=== PATIENT | male | born 1960 | race Caucasian/White ===

== ENCOUNTER 2022-04-15 15:10 | Inpatient (IN) ==
[2022-04-15] MEDS ORDERED: Ringers Solution, Lactated 1,000 ML IVC ONE ×3 (15:26→16:43)
[2022-04-15 15:34] LABS: Basophils % 0.1 %; Hematocrit 35.4 % (37.5-50.1); Hemoglobin 11.4 g/dL (12.9-16.9); Immature Granulocytes % 0.4 % (0-4); Lymphocytes # 0.5 K/mcL (0.6-4.6); Lymphocytes % 5.7 %; Mean Corpuscular HGB Conc 32.2 g/dL (31.6-35.5); Mean Corpuscular Hemoglobin 33.2 pg (28.0-33.3); Mean Corpuscular Volume 103.2 fL (83.0-100.0); Mean Platelet Volume 12.2 fL (9.4-12.4); Monocytes # 0.7 K/mcL (0.0-1.3); Monocytes % 8.4 %; Platelet Count 128 K/mcL (140-400); Red Blood Count 3.43 M/mcL (4.19-5.50); Red Cell Distribution Width 12.1 % (11.5-14.5); Segmented Neutrophils % 85.4 %; White Blood Count 8.2 K/mcL (4.3-11.1)
[2022-04-15] MEDS ORDERED: Ondansetron 4 MG/2 ML VIAL IVP ONE (15:36)
[2022-04-15 15:38] LABS: VBG HCO3 13 mEq/L (21-27); VBG PCO2 32 mmHg (41-51); VBG PH 7.21 pH Units (7.32-7.42); VBG PO2 86 mmHg (25-50)
[2022-04-15 15:57] LABS: Alanine Aminotransferase 29 Units/L (7-52); Albumin/Globulin Ratio 1.5 (1.1-2.2); Alkaline Phosphatase 71 Units/L (34-104); Aspartate Amino Transferase 35 Units/L (13-39); BUN/Creatinine Ratio 19 (6-26); Blood Urea Nitrogen 35 mg/dL (8-23); Calcium 8.5 mg/dL (8.6-10.3); Carbon Dioxide 13 mEq/L (23-29); Chloride 89 mEq/L (98-107); Globulin 2.6 g/dL (2.4-3.5); Glucose 679 mg/dL (70-105); Osmolality,Calculated 298 (280-300); Potassium 5.7 mEq/L (3.5-5.1); Sodium 124 mEq/L (136-145); Total Protein 6.6 g/dL (6.4-8.9); eGFR For African Americans 45 (> 60); eGFR For Non-African Americans 37 (> 60)
[2022-04-15] MEDS ORDERED: Insulin Regular, Human 100 UNIT/ML IV ONE (16:03)
[2022-04-15] MEDS ORDERED: 0.9 % Sodium Chloride w KCl 20 MEQ/1,000 ML MLS IVC SCH (16:15)
[2022-04-15 16:32] LABS: Lipase 15 Units/L (11-82); Troponin I < 0.03 ng/mL (< 0.04)
[2022-04-15 16:39] LABS: Influenza A PCR Negative (Negative); Influenza B PCR Negative (Negative); Resp. Syncytial Virus PCR Negative (Negative)
[2022-04-15 16:40] LABS: SARS-CoV-2 by PCR (In House) Negative (Negative)
[2022-04-15] MEDS ORDERED: *HR* Dextrose 50 % in Water (Syg) 50 ML SYRINGE IVP PRN (16:55)
[2022-04-15] MEDS ORDERED: D5% in 0.45% NACL w KCl 20 MEQ/1,000 ML MLS IVC PRN (16:55)
[2022-04-15] MEDS ORDERED: Insulin Regular, Human 100 UNIT/ML IV PRN (16:55)
[2022-04-15] MEDS ORDERED: D5% in 0.45% NACL 1,000 ML IVC PRN (16:55)
[2022-04-15] MEDS ORDERED: Naloxone 0.4 MG/ML INJ IVP PRN (16:57)
[2022-04-15] MEDS ORDERED: *HR* Labetalol 20 MG/4 ML SYRINGE IVP PRN (18:48)
[2022-04-15] MEDS ORDERED: 0.9 % Sodium Chloride w KCl 20 MEQ/1,000 ML MLS IVC PRN (19:33)
[2022-04-15] MEDS: 0.9 % Sodium Chloride 1,000 ML IVC SCH ×2 (19:34→19:35)
[2022-04-15] MEDS: 0.9 % Sodium Chloride w KCl 20 MEQ/1,000 ML MLS IVC SCH ×2 (19:34→19:35)
[2022-04-15] MEDS: 0.9 % Sodium Chloride 1,000 ML IVC PRN ×2 (19:47→22:01)
[2022-04-15] MEDS: Pantoprazole 40 MG VIAL IVP SCH (19:47)
[2022-04-15 20:22] LABS: Calcium 9.6 mg/dL (8.6-10.3); Potassium 5.5 mEq/L (3.5-5.1)
[2022-04-16 00:33] LABS: Phosphorous 4.2 mg/dL (2.7-4.5)
[2022-04-16] MEDS ORDERED: D5% in Water 1,000 ML IVC PRN (00:55)
[2022-04-16] MEDS ORDERED: Dextrose Gel 15 GM/37.5 ML TUBE PO PRN ×2 (00:55)
[2022-04-16] MEDS ORDERED: Insulin Human Regular 10 UNIT in 0.9 % Sodium Chloride 10 ML IV ONE (00:55)
[2022-04-16 03:40] LABS: Hemoglobin 10.1 g/dL (12.9-16.9); Immature Granulocytes % 0.2 % (0-4)
[2022-04-16 03:42] LABS: Basophils % 0.4 %; Eosinophils % 0.2 %; Hematocrit 29.4 % (37.5-50.1); Immature Platelets 11.5 % (1.1-6.1); Lymphocytes # 0.6 K/mcL (0.6-4.6); Lymphocytes % 12.3 %; Mean Corpuscular HGB Conc 34.4 g/dL (31.6-35.5); Mean Corpuscular Hemoglobin 34.4 pg (28.0-33.3); Mean Platelet Volume 11.6 fL (9.4-12.4); Monocytes # 0.9 K/mcL (0.0-1.3); Monocytes % 19.3 %; Neutrophils # 3.1 K/mcL (1.6-8.9); Red Blood Count 2.94 M/mcL (4.19-5.50); Red Cell Distribution Width 11.7 % (11.5-14.5); Segmented Neutrophils % 67.6 %; White Blood Count 4.6 K/mcL (4.3-11.1)
[2022-04-16 03:45] LABS: Platelet Count 94 K/mcL (140-400)
[2022-04-16 03:47] LABS: Magnesium 1.8 mg/dL (1.6-2.6)
[2022-04-16 04:23] LABS: Platelet Estimate Decreased (Normal)
[2022-04-16] MEDS: Pantoprazole 40 MG VIAL IVP SCH (05:35)
[2022-04-16] MEDS: *HR* Enoxaparin 40 MG/0.4 ML SYRINGE SQ SCH (05:40)
[2022-04-16 06:01] LABS: Potassium 4.4 mEq/L (3.5-5.1)
[2022-04-16] MEDS ORDERED: Insulin LISPRO 300 UNITS/3 ML VIAL SUBQ SCH ×2 (07:30→21:00)
[2022-04-16 07:44] LABS: Potassium 5.1 mEq/L (3.5-5.1)
[2022-04-16] MEDS: hydrALAZINE 25 MG TABLET PO SCH ×3 (08:33→19:48)
[2022-04-16] MEDS: amLODIPine 5 MG TABLET PO SCH (08:33)
[2022-04-16] MEDS: Metoprolol XL (24 HR) Succ 50 MG TAB.ER.24H PO SCH (08:34)
[2022-04-16] MEDS ORDERED: Insulin DETEMIR 100 UNIT/ML X5UNITS SUBQ SCH ×2 (09:00)
[2022-04-16] MEDS ORDERED: Insulin LISPRO 300 UNITS/3 ML VIAL SUBQ ONE (10:14)
[2022-04-16] MEDS: Insulin LISPRO 300 UNITS/3 ML VIAL SUBQ SCH ×5 (11:08→19:48)
[2022-04-16] MEDS: Acetaminophen 325 MG TABLET PO PRN ×2 (11:09→19:48)
[2022-04-16] MEDS: Ondansetron 4 MG/2 ML VIAL IVP PRN (11:12)
[2022-04-16 12:42] LABS: Calcium 8.3 mg/dL (8.6-10.3)
[2022-04-16] MEDS: 0.9 % Sodium Chloride 1,000 ML IVC SCH (16:03)
[2022-04-16] MEDS: Insulin DETEMIR 100 UNIT/ML X5UNITS SUBQ SCH (19:48)
[2022-04-17] MEDS: Acetaminophen 325 MG TABLET PO PRN ×3 (00:32→20:03)
[2022-04-17] MEDS: 0.9 % Sodium Chloride 1,000 ML IVC SCH ×2 (04:09→16:55)
[2022-04-17] MEDS: *HR* Enoxaparin 40 MG/0.4 ML SYRINGE SQ SCH (04:10)
[2022-04-17] MEDS: amLODIPine 5 MG TABLET PO SCH (08:23)
[2022-04-17] MEDS: Ondansetron 4 MG/2 ML VIAL IVP PRN ×2 (08:23→19:36)
[2022-04-17] MEDS: Insulin DETEMIR 100 UNIT/ML X5UNITS SUBQ SCH ×2 (08:24→20:06)
[2022-04-17] MEDS: hydrALAZINE 25 MG TABLET PO SCH ×3 (08:24→20:03)
[2022-04-17] MEDS: Metoprolol XL (24 HR) Succ 50 MG TAB.ER.24H PO SCH (08:24)
[2022-04-17] MEDS: Insulin LISPRO 300 UNITS/3 ML VIAL SUBQ SCH ×7 (08:25→20:04)
[2022-04-17 08:52] LABS: Basophils % 0.3 %; Eosinophils % 0.3 %; Hematocrit 29.8 % (37.5-50.1); Hemoglobin 10.2 g/dL (12.9-16.9); Immature Granulocytes % 0.6 % (0-4); Lymphocytes # 0.5 K/mcL (0.6-4.6); Lymphocytes % 13.1 %; Mean Corpuscular HGB Conc 34.2 g/dL (31.6-35.5); Mean Corpuscular Hemoglobin 33.4 pg (28.0-33.3); Mean Corpuscular Volume 97.7 fL (83.0-100.0); Mean Platelet Volume 12.1 fL (9.4-12.4); Monocytes # 0.4 K/mcL (0.0-1.3); Monocytes % 10.5 %; Neutrophils # 2.6 K/mcL (1.6-8.9); Red Blood Count 3.05 M/mcL (4.19-5.50); Red Cell Distribution Width 11.8 % (11.5-14.5); Segmented Neutrophils % 75.2 %; White Blood Count 3.4 K/mcL (4.3-11.1)
[2022-04-17 08:53] LABS: Platelet Count 63 K/mcL (140-400)
[2022-04-17 08:57] LABS: Bilirubin,Urine Negative (Negative); Blood,Urine Negative (Negative); Clarity,Urine Clear (Clear); Color,Urine Yellow (Yellow); Glucose,Urine (UA) 200 mg/dL (Normal); Ketones,Urine 10 mg/dL (Negative); Leukocyte Esterase,Urine Negative (Negative); Mucus,Urine Few per lpf (None-Few); Nitrite,Urine Negative (Negative); Protein,Urine 30 mg/dL (Neg-Trace); RBC,Urine 0-3 per hpf (0-3); Specific Gravity,Urine 1.018 (1.010-1.025); Urobilinogen,Urine Normal (Normal); WBC,Urine 0-3 per hpf (0-3)
[2022-04-17 09:20] LABS: BUN/Creatinine Ratio 24 (6-26); Blood Urea Nitrogen 28 mg/dL (8-23); Calcium 8.1 mg/dL (8.6-10.3); Carbon Dioxide 22 mEq/L (23-29); Chloride 101 mEq/L (98-107); Glucose 253 mg/dL (70-105); Magnesium 1.8 mg/dL (1.6-2.6); Osmolality,Calculated 284 (280-300); Potassium 4.9 mEq/L (3.5-5.1); Sodium 130 mEq/L (136-145); eGFR For African Americans > 60 (> 60); eGFR For Non-African Americans > 60 (> 60)
[2022-04-17] MEDS: Azithromycin 500 MG in 0.9 % Sodium Chloride 250 ML IVPB SCH (12:19)
[2022-04-17] MEDS: cefTRIAXone 1,000 MG in 0.9 % Sodium Chloride Mini Bag 100 ML IVPB SCH (12:20)
[2022-04-18] MEDS: *HR* Enoxaparin 40 MG/0.4 ML SYRINGE SQ SCH (05:12)
[2022-04-18] MEDS: Acetaminophen 325 MG TABLET PO PRN (05:26)
[2022-04-18 05:27] LABS: Eosinophils % 0.4 %
[2022-04-18 05:29] LABS: Hematocrit 29.1 % (37.5-50.1); Immature Granulocytes % 0.4 % (0-4); Immature Platelets 11.1 % (1.1-6.1); Lymphocytes # 0.5 K/mcL (0.6-4.6); Lymphocytes % 21.9 %; Mean Corpuscular HGB Conc 34.4 g/dL (31.6-35.5); Mean Corpuscular Hemoglobin 34.4 pg (28.0-33.3); Monocytes # 0.4 K/mcL (0.0-1.3); Monocytes % 15.5 %; Neutrophils # 1.4 K/mcL (1.6-8.9); Red Blood Count 2.91 M/mcL (4.19-5.50); Red Cell Distribution Width 11.6 % (11.5-14.5); Segmented Neutrophils % 61.8 %; White Blood Count 2.3 K/mcL (4.3-11.1)
[2022-04-18 05:35] LABS: Platelet Count 77 K/mcL (140-400)
[2022-04-18 05:48] LABS: BUN/Creatinine Ratio 16 (6-26); Blood Urea Nitrogen 17 mg/dL (8-23); Calcium 7.9 mg/dL (8.6-10.3); Carbon Dioxide 30 mEq/L (23-29); Chloride 100 mEq/L (98-107); Glucose 213 mg/dL (70-105); Magnesium 1.7 mg/dL (1.6-2.6); Osmolality,Calculated 282 (280-300); Sodium 132 mEq/L (136-145); eGFR For African Americans > 60 (> 60); eGFR For Non-African Americans > 60 (> 60)
[2022-04-18] MEDS: 0.9 % Sodium Chloride 1,000 ML IVC SCH (08:17)
[2022-04-18] MEDS: amLODIPine 5 MG TABLET PO SCH (08:17)
[2022-04-18] MEDS: Metoprolol XL (24 HR) Succ 50 MG TAB.ER.24H PO SCH (08:17)
[2022-04-18] MEDS: hydrALAZINE 25 MG TABLET PO SCH ×2 (08:18→17:12)
[2022-04-18] MEDS: Insulin LISPRO 300 UNITS/3 ML VIAL SUBQ SCH ×4 (08:18→12:25)
[2022-04-18] MEDS ORDERED: Losartan/HCTZ 50-12.5 TABLET PO SCH (09:00)
[2022-04-18 09:13] LABS: Adenovirus Not Detected (Not Detect); Bordetella Pertussis Not Detected (Not Detect); Chlamydophila pneumoniae Not Detected (Not Detect); Coronavirus 229E Not Detected (Not Detect); Coronavirus HKU1 Not Detected (Not Detect); Coronavirus NL63 Not Detected (Not Detect); Coronavirus OC43 Not Detected (Not Detect); Human Metapneumovirus Not Detected (Not Detect); Human Rhinovirus/Enterovirus Not Detected (Not Detect); Influenza A Subtype 2009 H1 Not Detected (Not Detect); Influenza B Not Detected (Not Detect); Mycoplasma pneumoniae Not Detected (Not Detect); Parainfluenza Virus 1 Not Detected (Not Detect); Parainfluenza Virus 2 Not Detected (Not Detect); Parainfluenza Virus 3 Not Detected (Not Detect); Parainfluenza Virus 4 Not Detected (Not Detect); Respiratory Syncytial Virus Not Detected (Not Detect); SARS-CoV-2 Not Detected (Not Detect)
[2022-04-18] MEDS: Insulin DETEMIR 100 UNIT/ML X5UNITS SUBQ SCH (09:59)
[2022-04-18] MEDS: cefTRIAXone 1,000 MG in 0.9 % Sodium Chloride Mini Bag 100 ML IVPB SCH (11:36)
[2022-04-18] MEDS: Azithromycin 500 MG in 0.9 % Sodium Chloride 250 ML IVPB SCH (11:37)
[2022-04-18 11:52] VITALS: TEMP 99.4; O2SAT 90
[2022-04-18 16:19] VITALS: BP 147/46; PULSE 86
== END 2022-04-18 17:20 | disposition home or self-care (01) | DRG 682 ==
LOC: EMEROOARM 15:10 → 2NNU 15:10 → SUATTDRO 18:04 → 2NNU 19:05
PROVIDERS: ADMIT Internal Medicine; ATTEND Family Medicine

== ENCOUNTER 2022-04-19 16:05 | Observation (INO) ==
[2022-04-19] MEDS ORDERED: Ondansetron ODT 4 MG TAB.RAPDIS SL ONE (16:31)
[2022-04-19 17:19] LABS: Basophils % 0.5 %; Eosinophils % 0.3 %; Hematocrit 29.4 % (37.5-50.1); Hemoglobin 10.3 g/dL (12.9-16.9); Immature Granulocytes % 0.8 % (0-4); Immature Platelets 13.7 % (1.1-6.1); Lymphocytes # 0.7 K/mcL (0.6-4.6); Lymphocytes % 16.6 %; Mean Corpuscular Hemoglobin 33.9 pg (28.0-33.3); Mean Corpuscular Volume 96.7 fL (83.0-100.0); Mean Platelet Volume 12.2 fL (9.4-12.4); Monocytes # 0.5 K/mcL (0.0-1.3); Monocytes % 12.1 %; Neutrophils # 2.8 K/mcL (1.6-8.9); Red Blood Count 3.04 M/mcL (4.19-5.50); Red Cell Distribution Width 11.4 % (11.5-14.5); Segmented Neutrophils % 69.7 %
[2022-04-19 17:20] LABS: Platelet Count 85 K/mcL (140-400)
[2022-04-19 17:33] LABS: BUN/Creatinine Ratio 15 (6-26); Blood Urea Nitrogen 15 mg/dL (8-23); Calcium 8.4 mg/dL (8.6-10.3); Carbon Dioxide 28 mEq/L (23-29); Chloride 94 mEq/L (98-107); Glucose 321 mg/dL (70-105); Osmolality,Calculated 283 (280-300); Potassium 4.1 mEq/L (3.5-5.1); Sodium 130 mEq/L (136-145); eGFR For African Americans > 60 (> 60); eGFR For Non-African Americans > 60 (> 60)
[2022-04-19 17:43] LABS: Platelet Estimate Decreased (Normal); Reactive Lymphocytes Present (Not Present); Smudge Cells Present (Not Present)
[2022-04-19 17:47] LABS: Influenza A PCR Negative (Negative); Influenza B PCR Negative (Negative); Resp. Syncytial Virus PCR Negative (Negative); SARS-CoV-2 by PCR (In House) Negative (Negative)
[2022-04-19] MEDS ORDERED: 0.9 % Sodium Chloride 1,000 ML IVC ONE (17:51)
[2022-04-19 18:33] LABS: Bilirubin,Urine Negative (Negative); Blood,Urine Small (Negative); Clarity,Urine Clear (Clear); Color,Urine Yellow (Yellow); Glucose,Urine (UA) >=1000 mg/dL (Normal); Ketones,Urine 40 mg/dL (Negative); Leukocyte Esterase,Urine Negative (Negative); Nitrite,Urine Negative (Negative); Protein,Urine >=300 mg/dL (Neg-Trace); RBC,Urine 0-3 per hpf (0-3); Specific Gravity,Urine 1.022 (1.010-1.025); Urobilinogen,Urine Normal (Normal); WBC,Urine 0-3 per hpf (0-3)
[2022-04-19] MEDS ORDERED: Insulin DETEMIR 100 UNIT/ML X5UNITS SUBQ ONE (18:44)
[2022-04-19] MEDS ORDERED: Acetaminophen 325 MG TABLET PO ONE (18:44)
[2022-04-19] MEDS ORDERED: Iopamidol - 370 500 ML MLS IVP ONE (19:46)
[2022-04-19] MEDS ORDERED: *HR* Promethazine 25 MG/ML VIAL IM PRN (20:06)
[2022-04-19] MEDS ORDERED: Naloxone 0.4 MG/ML INJ IVP PRN (20:06)
[2022-04-19] MEDS ORDERED: Melatonin 3 MG TABLET PO PRN (20:06)
[2022-04-19] MEDS: Acetaminophen 325 MG TABLET PO PRN (21:18)
[2022-04-19] MEDS ORDERED: Dextrose Gel 15 GM/37.5 ML TUBE PO PRN ×2 (22:40)
[2022-04-19] MEDS ORDERED: *HR* Dextrose 50 % in Water (Syg) 50 ML SYRINGE IVP PRN (22:40)
[2022-04-19] MEDS ORDERED: D5% in Water 1,000 ML IVC PRN (22:40)
[2022-04-20] MEDS: Piperacillin/Tazobactam 3.375 GM in 0.9 % Sodium Chloride Mini Bag 100 ML IVPB SCH ×4 (00:36→22:16)
[2022-04-20] MEDS: Ringers Solution, Lactated 1,000 ML IVC SCH ×2 (00:40→09:08)
[2022-04-20] MEDS ORDERED: Ringers Solution, Lactated 1,000 ML IVC ONE (04:39)
[2022-04-20] MEDS: Acetaminophen 325 MG TABLET PO PRN ×2 (04:46→12:23)
[2022-04-20] MEDS: Ondansetron 4 MG/2 ML VIAL IVP PRN ×2 (04:46→13:35)
[2022-04-20 06:01] LABS: Basophils % 0.3 %; Eosinophils % 0.3 %
[2022-04-20 06:03] LABS: Hematocrit 24.6 % (37.5-50.1); Hemoglobin 8.3 g/dL (12.9-16.9); Immature Granulocytes % 0.3 % (0-4); Lymphocytes # 0.5 K/mcL (0.6-4.6); Mean Corpuscular HGB Conc 33.7 g/dL (31.6-35.5); Mean Corpuscular Hemoglobin 32.9 pg (28.0-33.3); Mean Corpuscular Volume 97.6 fL (83.0-100.0); Mean Platelet Volume 12.4 fL (9.4-12.4); Monocytes # 0.4 K/mcL (0.0-1.3); Monocytes % 14.1 %; Neutrophils # 2.1 K/mcL (1.6-8.9); Red Blood Count 2.52 M/mcL (4.19-5.50); Red Cell Distribution Width 11.4 % (11.5-14.5); White Blood Count 3.1 K/mcL (4.3-11.1)
[2022-04-20 06:09] LABS: Platelet Count 78 K/mcL (140-400)
[2022-04-20 06:12] LABS: INR 1.3; Prothrombin Time 14.5 Seconds (9.4-12.1)
[2022-04-20 06:17] LABS: Adenovirus Not Detected (Not Detect); Bordetella Pertussis Not Detected (Not Detect); Chlamydophila pneumoniae Not Detected (Not Detect); Coronavirus 229E Not Detected (Not Detect); Coronavirus HKU1 Not Detected (Not Detect); Coronavirus NL63 Not Detected (Not Detect); Coronavirus OC43 Not Detected (Not Detect); Human Metapneumovirus Not Detected (Not Detect); Human Rhinovirus/Enterovirus Not Detected (Not Detect); Influenza A Subtype 2009 H1 Not Detected (Not Detect); Influenza B Not Detected (Not Detect); Mycoplasma pneumoniae Not Detected (Not Detect); Parainfluenza Virus 1 Not Detected (Not Detect); Parainfluenza Virus 2 Not Detected (Not Detect); Parainfluenza Virus 3 Not Detected (Not Detect); Parainfluenza Virus 4 Not Detected (Not Detect); Respiratory Syncytial Virus Not Detected (Not Detect); SARS-CoV-2 Not Detected (Not Detect)
[2022-04-20 06:26] LABS: BUN/Creatinine Ratio 14 (6-26); Blood Urea Nitrogen 14 mg/dL (8-23); Calcium 7.8 mg/dL (8.6-10.3); Carbon Dioxide 29 mEq/L (23-29); Chloride 95 mEq/L (98-107); Chol/HDL Ratio 2.8 (0-4.9); Cholesterol 61 mg/dL (< 200); Glucose 337 mg/dL (70-105); HDL Cholesterol 22 mg/dL (40-59); LDL Cholesterol,Calculated 10 mg/dL (< 100); Lactate Dehydrogenase 655 Units/L (140-271); Magnesium 1.5 mg/dL (1.6-2.6); Osmolality,Calculated 282 (280-300); Platelet Estimate Decreased (Normal); Potassium 3.9 mEq/L (3.5-5.1); Sodium 129 mEq/L (136-145); Triglycerides 145 mg/dL (< 150); eGFR For African Americans > 60 (> 60); eGFR For Non-African Americans > 60 (> 60)
[2022-04-20] MEDS: Insulin LISPRO 300 UNITS/3 ML VIAL SUBQ SCH ×4 (09:08→22:18)
[2022-04-20] MEDS: amLODIPine 5 MG TABLET PO SCH (12:05)
[2022-04-20] MEDS: Insulin DETEMIR 100 UNIT/ML X5UNITS SUBQ SCH ×3 (12:05→22:50)
[2022-04-20] MEDS: Metoprolol XL (24 HR) Succ 50 MG TAB.ER.24H PO SCH (12:05)
[2022-04-20] MEDS ORDERED: Vancomycin 1,500 MG/265 ML IV.SOLN IVPB SCH (13:00)
[2022-04-20] MEDS ORDERED: Vancomycin 1,750 MG/517.5 ML IV.SOLN IVPB ONE (13:00)
[2022-04-20] MEDS: *HR* HYDROcodone/Acet 5/325 mg TABLET PO PRN ×2 (13:35→22:17)
[2022-04-20 18:14] LABS: Bilirubin,Urine Negative (Negative); Blood,Urine Small (Negative); Clarity,Urine Clear (Clear); Color,Urine Yellow (Yellow); Glucose,Urine (UA) >=1000 mg/dL (Normal); Ketones,Urine 10 mg/dL (Negative); Leukocyte Esterase,Urine Negative (Negative); Nitrite,Urine Negative (Negative); Protein,Urine 200 mg/dL (Neg-Trace); RBC,Urine 0-3 per hpf (0-3); Squamous Epithelial Cell,Urine Few per hpf (None-Few); Urobilinogen,Urine Normal (Normal); WBC,Urine 0-3 per hpf (0-3)
[2022-04-20] MEDS ORDERED: Insulin DETEMIR 100 UNIT/ML X5UNITS SUBQ SCH (21:00)
[2022-04-21] MEDS: Vancomycin 1,250 MG/262.5 ML IV.SOLN IVPB SCH ×2 (01:33→16:35)
[2022-04-21] MEDS: Piperacillin/Tazobactam 3.375 GM in 0.9 % Sodium Chloride Mini Bag 100 ML IVPB SCH ×2 (07:07→16:34)
[2022-04-21] MEDS: *HR* OxyCODONE Immed Rel 5 MG TABLET PO PRN (07:12)
[2022-04-21] MEDS: Insulin LISPRO 300 UNITS/3 ML VIAL SUBQ SCH ×4 (08:14→20:10)
[2022-04-21] MEDS: amLODIPine 5 MG TABLET PO SCH (08:14)
[2022-04-21] MEDS: Metoprolol XL (24 HR) Succ 50 MG TAB.ER.24H PO SCH (08:14)
[2022-04-21] MEDS: Insulin DETEMIR 100 UNIT/ML X5UNITS SUBQ SCH ×2 (08:15→20:09)
[2022-04-21 11:12] LABS: Hematocrit 25.8 % (37.5-50.1); Hemoglobin 8.5 g/dL (12.9-16.9); Mean Corpuscular HGB Conc 32.9 g/dL (31.6-35.5); Mean Corpuscular Hemoglobin 32.8 pg (28.0-33.3); Mean Corpuscular Volume 99.6 fL (83.0-100.0); Mean Platelet Volume 12.5 fL (9.4-12.4); Platelet Count 112 K/mcL (140-400); Red Blood Count 2.59 M/mcL (4.19-5.50); Red Cell Distribution Width 11.5 % (11.5-14.5); White Blood Count 3.6 K/mcL (4.3-11.1)
[2022-04-21 11:16] LABS: BUN/Creatinine Ratio 12 (6-26); Blood Urea Nitrogen 15 mg/dL (8-23); Carbon Dioxide 32 mEq/L (23-29); Chloride 95 mEq/L (98-107); Glucose 267 mg/dL (70-105); Osmolality,Calculated 284 (280-300); Phosphorous 3.5 mg/dL (2.7-4.5); Potassium 3.7 mEq/L (3.5-5.1); Sodium 132 mEq/L (136-145); eGFR For African Americans > 60 (> 60); eGFR For Non-African Americans > 60 (> 60)
[2022-04-21] MEDS: Ondansetron 4 MG/2 ML VIAL IVP PRN (12:19)
[2022-04-21] MEDS ORDERED: *HR* Enoxaparin 40 MG/0.4 ML SYRINGE SQ ONE (13:02)
[2022-04-21 13:32] LABS: Thyroid Stimulating Hormone 5.911 mcIU/mL (0.340-5.600)
[2022-04-21 13:42] LABS: Folate 17.6 ng/mL (3.0-16.0)
[2022-04-21 13:44] LABS: Vitamin B12 > 1500 pg/mL (250-1100)
[2022-04-21] MEDS: *HR* HYDROcodone/Acet 5/325 mg TABLET PO PRN (16:42)
[2022-04-22] MEDS: Piperacillin/Tazobactam 3.375 GM in 0.9 % Sodium Chloride Mini Bag 100 ML IVPB SCH ×3 (00:08→17:01)
[2022-04-22] MEDS: Vancomycin 1,500 MG/265 ML IV.SOLN IVPB SCH ×2 (03:25→17:00)
[2022-04-22] MEDS: *HR* HYDROcodone/Acet 5/325 mg TABLET PO PRN (03:34)
[2022-04-22] MEDS: *HR* Enoxaparin 40 MG/0.4 ML SYRINGE SQ SCH (06:50)
[2022-04-22] MEDS: Insulin LISPRO 300 UNITS/3 ML VIAL SUBQ SCH ×4 (07:27→21:27)
[2022-04-22] MEDS: Vancomycin 1,250 MG/262.5 ML IV.SOLN IVPB SCH (09:32)
[2022-04-22 09:35] LABS: Basophils % 0.8 %; Hematocrit 25.9 % (37.5-50.1); Hemoglobin 8.7 g/dL (12.9-16.9); Immature Granulocytes % 0.3 % (0-4); Lymphocytes # 1.4 K/mcL (0.6-4.6); Lymphocytes % 37.6 %; Mean Corpuscular HGB Conc 33.6 g/dL (31.6-35.5); Mean Corpuscular Hemoglobin 33.5 pg (28.0-33.3); Mean Corpuscular Volume 99.6 fL (83.0-100.0); Mean Platelet Volume 11.8 fL (9.4-12.4); Monocytes # 0.5 K/mcL (0.0-1.3); Monocytes % 13.9 %; Neutrophils # 1.7 K/mcL (1.6-8.9); Platelet Count 141 K/mcL (140-400); Red Cell Distribution Width 11.5 % (11.5-14.5); Segmented Neutrophils % 47.4 %; White Blood Count 3.6 K/mcL (4.3-11.1)
[2022-04-22 09:47] LABS: Albumin 2.9 g/dL (3.5-5.7); Bilirubin,Direct 0.4 mg/dL (0.0-0.2); Bilirubin,Indirect 0.7 mg/dL (0.0-1.0); Bilirubin,Total 1.1 mg/dL (0.3-1.0); Total Protein 5.9 g/dL (6.4-8.9)
[2022-04-22 09:49] LABS: BUN/Creatinine Ratio 9 (6-26); Blood Urea Nitrogen 11 mg/dL (8-23); Calcium 8.3 mg/dL (8.6-10.3); Carbon Dioxide 32 mEq/L (23-29); Chloride 99 mEq/L (98-107); Glucose 143 mg/dL (70-105); Osmolality,Calculated 282 (280-300); Potassium 3.7 mEq/L (3.5-5.1); Sodium 135 mEq/L (136-145); eGFR For African Americans > 60 (> 60); eGFR For Non-African Americans > 60 (> 60)
[2022-04-22] MEDS: Metoprolol XL (24 HR) Succ 50 MG TAB.ER.24H PO SCH (09:51)
[2022-04-22] MEDS: *HR* OxyCODONE Immed Rel 5 MG TABLET PO PRN (09:51)
[2022-04-22] MEDS: Insulin DETEMIR 100 UNIT/ML X5UNITS SUBQ SCH ×2 (09:52→21:27)
[2022-04-22] MEDS: amLODIPine 5 MG TABLET PO SCH (09:52)
[2022-04-22 10:50] LABS: Platelet Estimate Normal (Normal); Reactive Lymphocytes Present (Not Present)
[2022-04-22 13:23] LABS: INR 1.2; Prothrombin Time 13.4 Seconds (9.4-12.1)
[2022-04-22 17:35] LABS: Appearance,CSF Clear (Clear); Red Blood Cell,CSF < 2000 RBC/mcL
[2022-04-22 17:46] LABS: Glucose,CSF 110 mg/dL (40-70); Total Protein,CSF 72 mg/dL (15-45)
[2022-04-22 18:23] LABS: Lymphocytes,CSF 86 %; Monocytes,CSF 6 %
[2022-04-23] MEDS: Vancomycin 1,500 MG/265 ML IV.SOLN IVPB SCH (02:45)
[2022-04-23] MEDS: Piperacillin/Tazobactam 3.375 GM in 0.9 % Sodium Chloride Mini Bag 100 ML IVPB SCH (02:46)
[2022-04-23] MEDS: Ondansetron 4 MG/2 ML VIAL IVP PRN (02:50)
[2022-04-23] MEDS: *HR* Enoxaparin 40 MG/0.4 ML SYRINGE SQ SCH (06:25)
[2022-04-23] MEDS: amLODIPine 5 MG TABLET PO SCH (07:10)
[2022-04-23] MEDS: *HR* OxyCODONE Immed Rel 5 MG TABLET PO PRN (07:11)
[2022-04-23] MEDS: Metoprolol XL (24 HR) Succ 50 MG TAB.ER.24H PO SCH (07:11)
[2022-04-23] MEDS: Insulin DETEMIR 100 UNIT/ML X5UNITS SUBQ SCH (08:08)
[2022-04-23] MEDS: Insulin LISPRO 300 UNITS/3 ML VIAL SUBQ SCH ×2 (08:10→11:39)
[2022-04-23] MEDS ORDERED: Acyclovir 500 MG in D5% in Water 250 ML IVPB SCH (08:59)
[2022-04-23] MEDS ORDERED: Doxycycline 100 MG CAPSULE PO SCH (09:00)
[2022-04-23 10:45] VITALS: BP 162/79; PULSE 78; TEMP 98.4; O2SAT 96
[2022-04-23 14:10] LABS: BUN/Creatinine Ratio 6 (6-26); Blood Urea Nitrogen 8 mg/dL (8-23); Vancomycin,Trough 14 mcg/mL (5-10); eGFR For African Americans > 60 (> 60); eGFR For Non-African Americans 55 (> 60)
[2022-04-24 01:49] LABS: Kappa Qnt Free Light Chains 36.97 mg/L (3.30-19.40); Lambda Qnt Free Light Chains 184.01 mg/L (5.71-26.30)
[2022-04-24 22:39] LABS: Alpha 2 Globulin (PEP) 0.46 g/dL (0.48-1.05); Beta Globulin (PEP) 0.55 g/dL (0.48-1.10)
[2022-04-25 08:06] LABS: IFE Reflexed IFE Done
[2022-04-25 08:18] LABS: Immunoglobulin A 457 mg/dL (68-408); Immunoglobulin G 972 mg/dL (768-1632); Immunoglobulin M 169 mg/dL (35-263)
[2022-04-26 11:56] LABS: HSV 2 Glycoprotein G IgG CSF 0.01 IV (<=0.89)
[2022-04-26 12:02] LABS: Enterovirus RNA Qual (PCR) NOT DETECTED
== END 2022-04-23 14:38 | disposition short-term general hospital (02) ==
LOC: 2ANU 16:05 → EMEROOARM 16:05 → SUATTDRO 21:11 → 2ANU 04-20 00:12
PROVIDERS: ADMIT Internal Medicine; ATTEND Internal Medicine